=== PATIENT | male | born 1980 | race Caucasian/White ===

== ENCOUNTER 2018-06-07 21:53 | Emergency (ER) | payer SELFPAY ==
[~2018-06-07] VITALS: Ht 180.3 cm; Wt 95.5 kg
[2018-06-07 22:22] LABS: APPEARANCE,URINE CLOUDY (CLEAR); BILIRUBIN,URINE NEGATIVE (NEGATIVE); GLUCOSE, URINE (UA) NEGATIVE (NEGATIVE); KETONES,URINE TRACE mg/dL (NEGATIVE); LEUKOCYTE ESTERASE ,URINE LARGE (NEGATIVE); NITRATE,URINE NEGATIVE (NEGATIVE); OCCULT BLOOD,URINE TRACE (NEGATIVE); PH,URINE 5.5 (5.0-8.0); PROTEIN,URINE TRACE (NEGATIVE)
[2018-06-07 22:28] LABS: WBC,URINE >100 /HPF (0-5)
[2018-06-07 22:29] LABS: BACTERIA,URINE Few /HPF (None Seen); RBC,URINE 0-2 /HPF (0-2)
[2018-06-07 22:30] LABS: SQUAMOUS EPITHELIAL CELL,UR Rare /LPF (None Seen)
[2018-06-07] MEDS ORDERED: AZITHROMYCIN 250 MG TABLET PO ONE (23:00)
[2018-06-07] MEDS ORDERED: CefTRIAXone SODIUM 1 GM/VIAL IM ONE (23:00)
[2018-06-07 23:25] VITALS: BP 119/77
== END 2018-06-07 23:25 | disposition home or self-care (01) ==
LOC: EMS 21:54
DX: N39.0 Urinary tract infection, site not specified (principal)
CPT/HCPCS: 81001; 87086; 96372; 99283; J0696